=== PATIENT | female | born 1990 | race African-American/Black ===

== ENCOUNTER 2017-02-06 18:55 | Emergency (ER) | payer OTHER ==
[2017-02-06 19:05] VITALS: BP 144/89; BMI 27.4
--- NOTE | 2017-02-06 19:25 | DR.GENAD ---
HPI - PCP Primary Care Physician: nfd - Complaint/Symptoms Chief Complaint:: left breast been hurting for a couple of weeks now it has a burning sensationand is swollen Self Treatment fo Chief Complaint: tylenol and aleve for pain. none taken today - Nurses notes reviewed Nurses Notes Review: Yes - Source History Provided: Patient - Mode of Arrival Mode of Arrival: Ambulatory - Timing Onset of Chief Complaint: 01/23/17 Came on: Gradually - Duration Duration: Constant How lon Duration: Weeks - Location Location: left breast - Severity Severity: Mild - Modifying Factors Worsens:: nothing - Associated Signs and Symptoms Associated Signs and Symptoms: none PMH - PMH Past Medical History: No Past Medical History: GERD Past Surgical History: Yes Surgical History: , Cholecystectomy, CLOTHING EXAMINER Surgery Past Surgical History Comment: tubes tied - Family History History of Family Medical Conditions: Yes Family Medical History: Diabetes Mellitus, Cancer, Coronary Artery Disease, Hypertension Family Medical History Comment: seizures - Social History Does patient currently use any type of tobacco product: No Have you used tobacco products in the last 12 months: No Type of Tobacco Use: None Does any household member use tobacco: No Alcohol Use: Occasionally Do you use any recreational Drugs:: No Lives With: Family Lives Where: Home - infectious screening In the last 2 months have you had wt loss of >10#?: NO Have you had fever, night sweats or hemotysis?: No Have you traveled outside the country in the last 6 months?: No Isolation: Standard ROS - Review of Systems Constitutional: No Symptoms Reported Eyes: No Symptoms Reported ENTM: No Symptoms Reported Respiratoy: No Symptoms Reported Cardiovascular: No Symptoms Reported Gastrointestinal/Abdominal: No Symptoms Reported Genitourinary: No Symptoms Reported Neurological: No Symptoms Reported Musculoskeletal: No Symptoms Reported Integumentary: No Symptoms Reported Hematologic/Lymphatic: No Symptoms Reported Endocrine: No Symptoms Reported Psychiatric: No Symptoms Reported PE - Vital Signs Vitals: Temperature 98.6 F Pulse Rate 86 Respiratory Rate 20 Blood Pressure 144/89 O2 Sat by Pulse Oximetry 100 - General Limitations: No Limitations General Appearance: Alert, In No Apparent Distress - Head Head Exam: Normal Inspection - Eyes Eye exam: Normal Appearance, EOMI. negative: Scleral Icterus, Conjunctival Injection - ENT External Ear Exam: Normal External Inspection Nose Exam: Normal Nose Exam - Neck Neck Exam: Normal Inspection, Full ROM, Trachea Midline - Respiratory Respiratory Exam: negative: Accessory Muscle Use, Chest Wall Tenderness, Respiratory Distress - Extremities Extremities Exam: Normal Inspection, Full ROM - Neurologic Neurological Exam: Alert, Oriented X3, CN II-XII Intact - Psychiatric Psychiatric Exam: Normal Mood - Skin Skin Exam: Intact, Normal Color - Diagnosis Discharge Problem: Mastitis - Discharge Plan Condition: Stable Prescriptions: Cephalexin [Keflex Cap 500 mg] 500 mg PO BID #20 cap Ibuprofen [Motrin Tab 800 mg] 800 mg PO Q8H PRN #30 tab PRN Reason: Pain/Inflammation - Follow ups/Referrals Follow ups/Referrals: NFD,None [Primary Care Provider] - 3 days - Instructions
[2017-02-06] MEDS ORDERED: AMOXIL CAP 500 MG PO ONE ×2 (19:45→19:53)
[2017-02-06] MEDS ORDERED: MOTRIN TAB 800 MG PO ONE ×2 (19:46→19:52)
== END 2017-02-06 19:55 | disposition home or self-care (01) ==
LOC: ER 19:08
DX: N61.0 Mastitis without abscess (principal)
CPT/HCPCS: 99282

== ENCOUNTER 2017-03-30 15:32 | Emergency (ER) | payer OTHER ==
[2017-03-30 15:36] VITALS: BMI 33.2
--- NOTE | 2017-03-30 15:51 | DR.EXTPAIN ---
HPI - Time seen Time seen: 15:50 - PCP Primary Care Physician: KYLE - HPI Comment HPI Comment: PAIN ASSOCIATED WITH LEFT SIDED PARESTHESIA AND DIZZINES. NO INJURY NOTED. SHOULDER PAIN INCREASE WITH MOVEMENT OF LEFT SHOULDER. - Complaint/Symptoms Chief Complaint Doctor Comments: PAIN LEFT SHOULDER RADIATING TO NECK AND LEFT ARM. Chief Complaint:: PT. C/O LEFT SHOULDER PAIN THAT RADIATES UP LEFT SIDE OF NECK AND HEAD. PT. C/O HAVING HOT FLASHES AND FEELING DIZZY WELL. - Nurses notes reviewed Nurses Notes Review: Yes - Source History Provided: Patient - Mode of arrival Mode of Arrival: Ambulatory - Timing Onset of Chief Complaint: 03/29/17 - Context History of: None - Associated signs and symptoms Associated Signs and Symptoms: Pain PMH - PMH Past Medical History: No Past Medical History: GERD Past Surgical History: Yes Surgical History: , Cholecystectomy - Family History History of Family Medical Conditions: Yes Family Medical History: Diabetes Mellitus, Cancer, Coronary Artery Disease, Hypertension - Social History Does patient currently use any type of tobacco product: No Have you used tobacco products in the last 12 months: No Type of Tobacco Use: None Does any household member use tobacco: No Alcohol Use: Occasionally Do you use any recreational Drugs:: No Lives With: Family Lives Where: Home - infectious screening In the last 2 months have you had wt loss of >10#?: NO Have you had fever, night sweats or hemotysis?: No Have you traveled outside the country in the last 6 months?: No Isolation: Standard ROS - Review of Systems Constitutional: No Symptoms Reported. negative: Chills, Diaphoresis, Fever, Weakness, Fatigue Eyes: No Symptoms Reported. negative: Eye Pain, Discharge ENTM: No Symptoms Reported. negative: Ear Pain, Nose Discharge, Nose Congestion , Throat Pain Respiratoy: Non-Productive Cough, Short of Breath. negative: Productive Cough, Wheezing, Hemoptysis Cardiovascular: Other (LT SHOULDER PAIN, BRADYCARDIA.). negative: Edema, Palpitations, Syncope Gastrointestinal/Abdominal: negative: Abdominal Pain, Constipation, Diarrhea, Nausea, Vomiting Genitourinary: No Symptoms Reported. negative: Dysuria, Frequency, Hematuria Neurological: Headache, Paresthesia, Dizziness. negative: Weakness Musculoskeletal: Joint Pain, Joint Swelling, Muscle Pain Integumentary: No Symptoms Reported Hematologic/Lymphatic: No Symptoms Reported Endocrine: No Symptoms Reported All Other Systems: Reviewed and Negative PE - Vital Signs Vitals: Temperature 98.1 F Pulse Rate [Left Brachial] 57 Pulse Rate 78 Respiratory Rate 18 Blood Pressure [Left Arm] 141/95 Blood Pressure 149/102 O2 Sat by Pulse Oximetry 97 - General Limitations: No Limitations General Appearance: Alert - Head Head Exam: Normal Inspection - Eyes Eye exam: Normal Appearance - ENT ENT Exam: Normal External Ear Exam - Neck Neck Exam: Normal Inspection - Chest Chest Inspection: Symmetric Chest Wall Rise - Respiratory Respiratory Exam: Normal Lung Sounds Bilat Respiratory Exam: Bilateral Clear to Auscultation - Cardiovascular Cardiovascular Exam: Bradycardia - Abdominal Exam Abdominal Exam: Normal Bowel Sounds, Soft. negative: Tenderness - Extremities Extremities Exam: Tenderness (LT SHOULDER, ), Joint Swelling (LT SHOULDER). negative: Full ROM (DECREASE ROM.) - Upper Extremities Shoulder Exam: Tenderness, Swelling, Tenderness over AC Joint. negative: Full ROM - Lower Extremities Gait Exam: Observed and Normal - Back Back Exam: Normal Inspection - Neurological Neurological Exam: Alert, Oriented X3, CN II-XII Intact, Normal Gait, Reflexes Normal. negative: Motor Sensory Deficit - Psychiatric Psychiatric Exam: Anxious - Skin Skin Exam: Normal Color MDM - Differential Diagnosis Differential Diagnosis: Contusion, Fracture, Sprain, Other (OH, CVA, STRAIN) Course - Treatment Treatment: SEE ORDERS. - Consultation Consultation Comments: DISCUSS PATIENT WITH DR. OCAMPO.HE WILL FOLLOW PATIENT IN HIS OFFICE - Education/Counseling Education/Counseling: Patient, Education Educated On: Diagnosis, Needs for Follow Up ROR - Labs Reviewed Laboratory Results Reviewed?: Yes Result Diagrams: 03/30/17 16:12 03/30/17 16:12 Laboratory: WBC 3.5 X10^3/uL (3.6-10.0) L 03/30/17 16:12 RBC 4.37 X10^6/uL (3.5-5.4) 03/30/17 16:12 Hgb 11.9 g/dL (12.0-16.0) L 03/30/17 16:12 Hct 35.7 % (36.0-47.0) L 03/30/17 16:12 MCV 81.6 fL (80.0-100.0) 03/30/17 16:12 MCH 27.1 pg (27.0-34.0) 03/30/17 16:12 MCHC 33.2 g/dL (33.0-35.0) 03/30/17 16:12 RDW 12.9 % (11.6-16.5) 03/30/17 16:12 Plt Count 211 X10^3/uL (150.0-450.0) 03/30/17 16:12 MPV 8.3 fL (7.4-11.0) 03/30/17 16:12 Neut % 34.6 % (42.0-75.0) L 03/30/17 16:12 Lymph % 44.5 % (21.0-51.0) 03/30/17 16:12 [place] % 11.3 % (0.0-13.0) 03/30/17 16:12 Eos % 8.9 % (0.9-2.9) H 03/30/17 16:12 Baso % 0.7 % (0.2-1.0) 03/30/17 16:12 Neut # 1.2 x10^3/uL (2.2-4.8) L 03/30/17 16:12 Lymph # 1.6 X10^3/uL (1.3-2.9) 03/30/17 16:12 [place] # 0.4 x10^3/uL (0.3-0.8) 03/30/17 16:12 Eos # 0.3 x10^3/uL (0.0-0.2) H 03/30/17 16:12 Baso # 0.0 X10^3/uL (0.0-0.1) 03/30/17 16:12 Absolute Nucleated RBC 0.0 /100WBC 03/30/17 16:12 Sodium 141 mmol/L (136-145) 03/30/17 16:12 Corrected Sodium TNP 03/30/17 16:12 Potassium 3.4 mmol/L (3.5-5.1) L 03/30/17 16:12 Chloride 106 mmol/L (98-107) 03/30/17 16:12 Carbon Dioxide 28.3 mmol/L (21-32) 03/30/17 16:12 BUN 9 mg/dL (7-18) 03/30/17 16:12 Creatinine 0.86 mg/dL (0.55-1.02) 03/30/17 16:12 Est GFR (MDRD) Af Amer > 60 (>60) 03/30/17 16:12 Est GFR (MDRD) Non-Af > 60 (>60) 03/30/17 16:12 Glucose 86 mg/dL (65-99) 03/30/17 16:12 Calcium 9.0 mg/dL (8.5-10.1) 03/30/17 16:12 Corrected Calcium TNP 03/30/17 16:12 Total Bilirubin 0.80 mg/dL (0.2-1.0) 03/30/17 16:12 AST 20 Units/L (15-37) 03/30/17 16:12 ALT 20 Units/L (12-78) 03/30/17 16:12 Alkaline Phosphatase 70 Units/L (46-116) 03/30/17 16:12 Creatine Kinase 296 Units/L (26-192) H 03/30/17 16:12 CK-MB (CK-2) < 1.0 ng/mL (0-4.0) 03/30/17 16:12 CK/CKMB % Calc 0.3 % (<4) 03/30/17 16:12 Troponin I < 0.02 ng/mL (0-1.5) 03/30/17 16:12 Total Protein 7.7 g/dL (6.4-8.2) 03/30/17 16:12 Albumin 3.8 g/dL (3.4-5.0) 03/30/17 16:12 Globulin 3.9 g/dL (2.5-4.5) 03/30/17 16:12 Albumin/Globulin Ratio 1.0 Ratio (1.1-2.1) L 03/30/17 16:12 HCG, Qual Negative <10 mIU/mL 03/30/17 16:12 Specimen Type Clean catch urine 03/30/17 17:08 Urine Color Yellow (YELLOW) 03/30/17 17:08 Urine Appearance Slightly hazy (CLEAR) 03/30/17 17:08 Urine pH 7.0 (5.0 - 8.0) 03/30/17 17:08 Ur Specific [place] 1.010 (1.000-1.030) 03/30/17 17:08 Urine Protein Negative (NEGATIVE) 03/30/17 17:08 Urine Glucose (UA) Negative (NEGATIVE) 03/30/17 17:08 Urine Ketones Negative (NEGATIVE) 03/30/17 17:08 Urine Occult Blood Negative (NEGATIVE) 03/30/17 17:08 Urine Nitrite Negative (NEGATIVE) 03/30/17 17:08 Urine Bilirubin Negative (NEGATIVE) 03/30/17 17:08 Urine Urobilinogen 1+ (NORMAL) 03/30/17 17:08 Ur Leukocyte Esterase Negative (NEGATIVE) 03/30/17 17:08 Urine RBC Negative /HPF (NEGATIVE) 03/30/17 17:08 Urine WBC Rare /HPF (NEGATIVE) 03/30/17 17:08 Ur Squamous Epith Cells Few /HPF (NEGATIVE) 03/30/17 17:08 Urine Bacteria Negative /HPF (NEGATIVE) 03/30/17 17:08 Urine Mucus Few /HPF (NEGATIVE) 03/30/17 17:08 Ur Culture Indicated? No/not indicated 03/30/17 17:08 Urine Opiates Screen Negative (NEG=<300) 03/30/17 17:08 Urine Methadone Screen Negative (NEG=<300) 03/30/17 17:08 Ur Barbiturates Screen Negative (NEG=<200) 03/30/17 17:08 Ur Phencyclidine Scrn Negative (NEG=<25) 03/30/17 17:08 Ur Amphetamines Screen Negative (NEG=<1000) 03/30/17 17:08 U Benzodiazepines Scrn Negative (NEG=<200) 03/30/17 17:08 Urine Cocaine Screen Negative (NEG=<300) 03/30/17 17:08 U Marijuana (THC) Screen Positive (NEG=<50) A 03/30/17 17:08 - XRAY XRAY Interpreted by: Radiologist XRAY Findings: REPORT DISCUSS WITH PATIENT. - EKG Rhythm: SB (EKG NOTED AND DISCUSS WITH PATIENT.) - Diagnosis Discharge Problem: Bradycardia Chest pain Qualifiers: Chest pain type: intercostal pain Qualified Code(s): R07.82 - Intercostal pain Sprain of left shoulder Qualifiers: Encounter type: initial encounter Shoulder sprain type: unspecified sprain Qualified Code(s): S43.402A - Unspecified sprain of left shoulder joint, initial encounter - Discharge Plan Disposition: 01 HOME, SELF-CARE Condition: Stable Prescriptions: Cyclobenzaprine HCl [FLEXERIL 10 MG *] 10 mg PO TID PRN #20 tab PRN Reason: Ibuprofen [MOTRIN TAB 600 MG *] 600 mg PO TID PRN #20 tab PRN Reason: Pain/Inflammation - Follow ups/Referrals Follow ups/Referrals: SARAH OCAMPO [STAFF PHYSICIAN] - 03/31/17 NFD,None [Primary Care Provider] - 03/31/17 - Instructions Instructions: Shoulder Pain, [id number], Bradycardia Additional Instructions: RETURN TO ED IF WORSE.
[2017-03-30 16:39] LABS: BASOPHILS % (AUTO) 0.7 % (0.2-1.0); EOSINOPHILS # (AUTO) 0.3 x10^3/uL (0.0-0.2); EOSINOPHILS % (AUTO) 8.9 % (0.9-2.9); HEMATOCRIT 35.7 % (36.0-47.0); HEMOGLOBIN 11.9 g/dL (12.0-16.0); LYMPHOCYTES # (AUTO) 1.6 X10^3/uL (1.3-2.9); LYMPHOCYTES % (AUTO) 44.5 % (21.0-51.0); MEAN CORPUSCULAR HEMOGLOBIN 27.1 pg (27.0-34.0); MEAN CORPUSCULAR HGB CONC 33.2 g/dL (33.0-35.0); MEAN CORPUSCULAR VOLUME 81.6 fL (80.0-100.0); MEAN PLATELET VOLUME 8.3 fL (7.4-11.0); MONOCYTES # (AUTO) 0.4 x10^3/uL (0.3-0.8); MONOCYTES % (AUTO) 11.3 % (0.0-13.0); NEUTROPHILS # (AUTO) 1.2 x10^3/uL (2.2-4.8); NEUTROPHILS % (AUTO) 34.6 % (42.0-75.0); PLATELET COUNT 211 X10^3/uL (150.0-450.0); RED BLOOD COUNT 4.37 X10^6/uL (3.5-5.4); RED CELL DISTRIBUTION WIDTH 12.9 % (11.6-16.5); WHITE BLOOD COUNT 3.5 X10^3/uL (3.6-10.0)
--- NOTE | 2017-03-30 16:42 | RAD ---
HISTORY: Pain Study: Left shoulder series Comparison: None Findings: The appearance of the clavicle and AC joint are unremarkable. The glenohumeral articulation is norm al in its appearance. No acute cortical disruption or dislocation can be identified. The visualize d portions of the scapula are unremarkable. In addition, the visualized portions of the chest appea r unremarkable. IMPRESSION: 1. Negative exam. Reported By:
--- NOTE | 2017-03-30 16:44 | RAD ---
HISTORY: Pain Study: Portable chest Comparison: 05/01/2016 Findings: The trachea is midline. The cardiac silhouette is unremarkable. The lungs are clear without focal infiltrate or effusion. The bony thorax is unremarkable. IMPRESSION: Stable chest with no acute abnormality seen. Reported By:
--- NOTE | 2017-03-30 16:45 | CT ---
HISTORY: Headache Study: CT brain without contrast Comparison: None Technique: Multiple axial images of the brain were obtained from the skull base to the vertex without administr ation of IV contrast. Findings: No acute intraparenchymal hemorrhage or mass can be identified. No extra-axial fluid collections ar e seen. No alteration in the attenuation of the brain parenchyma can be identified to suggest acute or subacute ischemic change. The ventricular system is symmetric and nondilated. The extracranial structures are grossly unremarkable. IMPRESSION: 1. No acute intracranial process can be identified. Reported By:
[2017-03-30 17:03] LABS: BLOOD UREA NITROGEN 9 mg/dL (7-18); CARBON DIOXIDE 28.3 mmol/L (21-32); CHLORIDE 106 mmol/L (98-107); CREATININE 0.86 mg/dL (0.55-1.02); GLUCOSE 86 mg/dL (65-99); SODIUM 141 mmol/L (136-145); TROPONIN I < 0.02 ng/mL (0-1.5); eGFR BLACK RACES > 60 (>60); eGFR NON BLACK RACES > 60 (>60)
[2017-03-30 17:05] LABS: ALANINE AMINOTRANSFERASE 20 Units/L (12-78); ALBUMIN 3.8 g/dL (3.4-5.0); ALKALINE PHOSPHATASE 70 Units/L (46-116); ASPARTATE AMINO TRANSFERASE 20 Units/L (15-37); CKMB % 0.3 % (<4); CREATINE KINASE 296 Units/L (26-192); CREATINE KINASE MB < 1.0 ng/mL (0-4.0); TOTAL PROTEIN 7.7 g/dL (6.4-8.2)
[2017-03-30 17:08] LABS: SERUM PREGNANCY TEST, QUAL NEGATIVE <10 mIU/mL
[2017-03-30 17:26] LABS: BILIRUBIN,URINE NEGATIVE (NEGATIVE); BLOOD/HEMOGLOBIN,URINE NEGATIVE (NEGATIVE); GLUCOSE, URINE NEGATIVE (NEGATIVE); KETONES,URINE NEGATIVE (NEGATIVE); LEUKOCYTE ESTERASE ,URINE NEGATIVE (NEGATIVE); NITRITES,URINE NEGATIVE (NEGATIVE); PROTEIN,URINE NEGATIVE (NEGATIVE); UROBILINOGEN,URINE 1+ (NORMAL)
[2017-03-30 17:36] LABS: APPEARANCE,URINE SLIGHTLY HAZY (CLEAR); COLOR,URINE YELLOW (YELLOW)
[2017-03-30 17:38] LABS: BACTERIA,URINE NEGATIVE /HPF (NEGATIVE); MUCUS,URINE FEW /HPF (NEGATIVE); RBC,URINE NEGATIVE /HPF (NEGATIVE); SQUAMOUS EPITHELIAL CELL,UR FEW /HPF (NEGATIVE)
[2017-03-30] MEDS ORDERED: TORADOL TAB PO ONE ×2 (18:25→18:31)
[2017-03-30] MEDS ORDERED: FLEXERIL TAB 10 MG PO ONE (18:26)
[2017-03-30 18:32] VITALS: BP 141/95
[2017-03-30] MEDS ORDERED: FLEXERIL TAB 10 MG ONE (18:32)
== END 2017-03-30 18:36 | disposition home or self-care (01) ==
LOC: ER 15:38
DX: S43.402A Unspecified sprain of left shoulder joint, initial encounter (principal); R00.1 Bradycardia, unspecified; Y33.XXXA Other specified events, undetermined intent, initial encounter; R51 Headache
CPT/HCPCS: 36415; 70450; 71010; 73030; 80053; 80307; 81001; 82550; 82553; 84484; 84703; 85025; 93005; 93010; 99283; G0434

== ENCOUNTER 2017-07-09 08:26 | Emergency (ER) | payer OTHER ==
[2017-07-09 08:32] VITALS: BMI 33.2
--- NOTE | 2017-07-09 08:41 | DR.GENAD ---
HPI - PCP Primary Care Physician: none - HPI Comment HPI Comment: SUBSTERNAL SHARP PAIN RADIATING TO LEFT ARM ASSOCIATED WITH WEAKNESS AND SOB. NO COUGH, FEVER OR CONGESTION. PAIN INTERMITTENT. NO MED TAKEN FOR PAIN. - Complaint/Symptoms Chief Complaint Doctors Comments: CHEST PAIN. STARTED THIS AM. Chief Complaint:: "pt having chest pain for about an hour now it started at work this morning its hurting in the center of her chest and going down her left arm" - Nurses notes reviewed Nurses Notes Review: Yes - Source History Provided: Patient - Mode of Arrival Mode of Arrival: Ambulatory - Timing Onset of Chief Complaint: 07/09/17 Came on: Suddenly - Duration Duration: Constant Duration: Hours. denies: Days - Severity Severity: Moderate PMH - PMH Past Medical History: Yes Past Medical History: Anxiety, GERD Past Surgical History: Yes Surgical History: , Cholecystectomy - Family History History of Family Medical Conditions: Yes Family Medical History: Diabetes Mellitus, Cancer, Coronary Artery Disease, Hypertension - Social History Does patient currently use any type of tobacco product: No Have you used tobacco products in the last 12 months: No Type of Tobacco Use: None Does any household member use tobacco: No Alcohol Use: None Do you use any recreational Drugs:: No Lives With: Family Lives Where: Home - infectious screening In the last 2 months have you had wt loss of >10#?: NO Have you had fever, night sweats or hemotysis?: No Have you traveled outside the country in the last 6 months?: No Isolation: Standard ROS - Review of Systems Constitutional: Weakness, Fatigue Eyes: No Symptoms Reported. negative: Eye Pain, Discharge ENTM: No Symptoms Reported. negative: Ear Pain, Nose Discharge, Nose Congestion , Throat Pain Respiratoy: No Symptoms Reported, Short of Breath. negative: Productive Cough, Non-Productive Cough, Wheezing, Hemoptysis Cardiovascular: Chest Pain, Palpitations. negative: Edema, Syncope Gastrointestinal/Abdominal: No Symptoms Reported, Diarrhea Genitourinary: No Symptoms Reported. negative: Dysuria, Frequency, Hematuria Neurological: No Symptoms Reported, Weakness. negative: Headache, Dizziness Musculoskeletal: No Symptoms Reported Integumentary: No Symptoms Reported Hematologic/Lymphatic: No Symptoms Reported Endocrine: No Symptoms Reported All Other Systems: Reviewed and Negative PE - Vital Signs Vitals: Temperature 98 F Pulse Rate [Right Brachial] 74 Pulse Rate 95 Respiratory Rate 20 Blood Pressure [Left Arm] 118/73 Blood Pressure 133/91 O2 Sat by Pulse Oximetry 99 - General Limitations: No Limitations General Appearance: Alert - Head Head Exam: Normal Inspection - Eyes Eye exam: Normal Appearance, PERRL, EOMI. negative: Conjunctival Injection - ENT ENT Exam: Normal External Ear Exam External Ear Exam: Normal External Inspection TM/Canal Exam: Bilateral Normal Nose Exam: Normal Nose Exam Mouth Exam: Normal Inspection Throat Exam: Normal Inspection - Neck Neck Exam: Normal Inspection, Trachea Midline - Chest Chest Inspection: Symmetric Chest Wall Rise - Respiratory Respiratory Exam: Normal Lung Sounds Bilat Respiratory Exam: Bilateral Clear to Auscultation - Cardiovascular Cardiovascular Exam: Regular Rate, Normal Rhythm - Abdominal Exam Abdominal Exam: Normal Inspection - Extremities Extremities Exam: Normal Inspection - Back Back Exam: Normal Inspection - Neurologic Neurological Exam: Alert, Oriented X3 - Psychiatric Psychiatric Exam: Normal Affect - Skin Skin Exam: Normal Color MDM - Differential Diagnosis Differential Diagnosis: CHEST PAIN Course - Treatment Treatment: SEE ORDERS. - Education/Counseling Education/Counseling: Patient Educated On: Treatment, Diagnosis ROR - Labs Reviewed Laboratory Results Reviewed?: Yes Result Diagrams: 07/09/17 09:08 07/09/17 09:08 Laboratory: WBC 3.7 X10^3/uL (3.6-10.0) 07/09/17 09:08 RBC 4.66 X10^6/uL (3.5-5.4) 07/09/17 09:08 Hgb 12.8 g/dL (12.0-16.0) 07/09/17 09:08 Hct 38.1 % (36.0-47.0) 07/09/17 09:08 MCV 81.9 fL (80.0-100.0) 07/09/17 09:08 MCH 27.5 pg (27.0-34.0) 07/09/17 09:08 MCHC 33.5 g/dL (33.0-35.0) 07/09/17 09:08 RDW 13.4 % (11.6-16.5) 07/09/17 09:08 Plt Count 208 X10^3/uL (150.0-450.0) 07/09/17 09:08 MPV 8.1 fL (7.4-11.0) 07/09/17 09:08 Neut % 36.5 % (42.0-75.0) L 07/09/17 09:08 Lymph % 43.0 % (21.0-51.0) 07/09/17 09:08 [place] % 11.4 % (0.0-13.0) 07/09/17 09:08 Eos % 7.9 % (0.9-2.9) H 07/09/17 09:08 Baso % 1.2 % (0.2-1.0) H 07/09/17 09:08 Neut # 1.3 x10^3/uL (2.2-4.8) L 07/09/17 09:08 Lymph # 1.6 X10^3/uL (1.3-2.9) 07/09/17 09:08 [place] # 0.4 x10^3/uL (0.3-0.8) 07/09/17 09:08 Eos # 0.3 x10^3/uL (0.0-0.2) H 07/09/17 09:08 Baso # 0.0 X10^3/uL (0.0-0.1) 07/09/17 09:08 Absolute Nucleated RBC 0.0 /100WBC 07/09/17 09:08 D-Dimer < 100 ng/mL (0-400) 07/09/17 09:08 Sodium 138 mmol/L (136-145) 07/09/17 09:08 Corrected Sodium TNP 07/09/17 09:08 Potassium 3.7 mmol/L (3.5-5.1) 07/09/17 09:08 Chloride 104 mmol/L (98-107) 07/09/17 09:08 Carbon Dioxide 25.2 mmol/L (21-32) 07/09/17 09:08 BUN 12 mg/dL (7-18) 07/09/17 09:08 Creatinine 0.96 mg/dL (0.55-1.02) 07/09/17 09:08 Est GFR (MDRD) Af Amer > 60 (>60) 07/09/17 09:08 Est GFR (MDRD) Non-Af > 60 (>60) 07/09/17 09:08 Glucose 88 mg/dL (65-99) 07/09/17 09:08 Calcium 9.0 mg/dL (8.5-10.1) 07/09/17 09:08 Corrected Calcium TNP 07/09/17 09:08 Total Bilirubin 0.70 mg/dL (0.2-1.0) 07/09/17 09:08 AST 18 Units/L (15-37) 07/09/17 09:08 ALT 21 Units/L (12-78) 07/09/17 09:08 Alkaline Phosphatase 69 Units/L (46-116) 07/09/17 09:08 Creatine Kinase 228 Units/L (26-192) H 07/09/17 09:08 CK-MB (CK-2) < 1.0 ng/mL (0-4.0) 07/09/17 09:08 CK/CKMB % Calc 0.4 % (<4) 07/09/17 09:08 Troponin I < 0.02 ng/mL (0-1.5) 07/09/17 09:08 Total Protein 8.0 g/dL (6.4-8.2) 07/09/17 09:08 Albumin 3.8 g/dL (3.4-5.0) 07/09/17 09:08 Globulin 4.2 g/dL (2.5-4.5) 07/09/17 09:08 Albumin/Globulin Ratio 0.9 Ratio (1.1-2.1) L 07/09/17 09:08 Specimen Type Clean catch urine 07/09/17 09:07 Urine Color Yellow (YELLOW) 07/09/17 09:07 Urine Appearance Clear (CLEAR) 07/09/17 09:07 Urine pH 6.0 (5.0 - 8.0) 07/09/17 09:07 Ur Specific [place] 1.025 (1.000-1.030) 07/09/17 09:07 Urine Protein Negative (NEGATIVE) 07/09/17 09:07 Urine Glucose (UA) Negative (NEGATIVE) 07/09/17 09:07 Urine Ketones Negative (NEGATIVE) 07/09/17 09:07 Urine Occult Blood Negative (NEGATIVE) 07/09/17 09:07 Urine Nitrite Negative (NEGATIVE) 07/09/17 09:07 Urine Bilirubin Negative (NEGATIVE) 07/09/17 09:07 Urine Urobilinogen 1+ (NORMAL) 07/09/17 09:07 Ur Leukocyte Esterase Negative (NEGATIVE) 07/09/17 09:07 Urine RBC 0 /HPF (NEGATIVE) 07/09/17 09:07 Urine WBC 0-1 /HPF (NEGATIVE) 07/09/17 09:07 Ur Squamous Epith Cells Few /HPF (NEGATIVE) 07/09/17 09:07 Urine Bacteria Trace /HPF (NEGATIVE) 07/09/17 09:07 Ur Culture Indicated? No/not indicated 07/09/17 09:07 Urine Opiates Screen Negative (NEG=<300) 07/09/17 09:07 Urine Methadone Screen Negative (NEG=<300) 07/09/17 09:07 Ur Barbiturates Screen Negative (NEG=<200) 07/09/17 09:07 Ur Phencyclidine Scrn Negative (NEG=<25) 07/09/17 09:07 Ur Amphetamines Screen Negative (NEG=<1000) 07/09/17 09:07 U Benzodiazepines Scrn Negative (NEG=<200) 07/09/17 09:07 Urine Cocaine Screen Negative (NEG=<300) 07/09/17 09:07 U Marijuana (THC) Screen Positive (NEG=<50) A 07/09/17 09:07 H. pylori IgG Antibody Negative (NEGATIVE) 07/09/17 09:08 - XRAY XRAY Interpreted by: Radiologist XRAY Findings: REPORT DISCUSS WITH PATIENT. - EKG Rhythm: NSR (EKG NOTED) - Diagnosis Discharge Problem: Chest pain Qualifiers: Chest pain type: intercostal pain Qualified Code(s): R07.82 - Intercostal pain - Discharge Plan Disposition: 01 HOME, SELF-CARE Condition: Stable Prescriptions: Ranitidine HCl [ZANTAC TAB 150 MG *] 150 mg PO BID #60 tab - Follow ups/Referrals Follow ups/Referrals: NFD,None [Primary Care Provider] - 1 day SARAH OCAMPO [STAFF PHYSICIAN] - 1 day - Instructions Instructions: Chest Pain Observation Additional Instructions: RETURN TO ED IF WORSE.
[2017-07-09 09:06] VITALS: BP 118/73
[2017-07-09 09:22] LABS: BASOPHILS % (AUTO) 1.2 % (0.2-1.0); EOSINOPHILS # (AUTO) 0.3 x10^3/uL (0.0-0.2); EOSINOPHILS % (AUTO) 7.9 % (0.9-2.9); HEMATOCRIT 38.1 % (36.0-47.0); HEMOGLOBIN 12.8 g/dL (12.0-16.0); LYMPHOCYTES # (AUTO) 1.6 X10^3/uL (1.3-2.9); MEAN CORPUSCULAR HEMOGLOBIN 27.5 pg (27.0-34.0); MEAN CORPUSCULAR HGB CONC 33.5 g/dL (33.0-35.0); MEAN CORPUSCULAR VOLUME 81.9 fL (80.0-100.0); MEAN PLATELET VOLUME 8.1 fL (7.4-11.0); MONOCYTES # (AUTO) 0.4 x10^3/uL (0.3-0.8); MONOCYTES % (AUTO) 11.4 % (0.0-13.0); NEUTROPHILS # (AUTO) 1.3 x10^3/uL (2.2-4.8); NEUTROPHILS % (AUTO) 36.5 % (42.0-75.0); PLATELET COUNT 208 X10^3/uL (150.0-450.0); RED BLOOD COUNT 4.66 X10^6/uL (3.5-5.4); RED CELL DISTRIBUTION WIDTH 13.4 % (11.6-16.5); WHITE BLOOD COUNT 3.7 X10^3/uL (3.6-10.0)
[2017-07-09 09:25] LABS: BILIRUBIN,URINE NEGATIVE (NEGATIVE); BLOOD/HEMOGLOBIN,URINE NEGATIVE (NEGATIVE); GLUCOSE, URINE NEGATIVE (NEGATIVE); KETONES,URINE NEGATIVE (NEGATIVE); LEUKOCYTE ESTERASE ,URINE NEGATIVE (NEGATIVE); NITRITES,URINE NEGATIVE (NEGATIVE); PROTEIN,URINE NEGATIVE (NEGATIVE); UROBILINOGEN,URINE 1+ (NORMAL)
--- NOTE | 2017-07-09 09:27 | RAD ---
HISTORY: Chest pain Study: Chest AP portable Comparison: March 30, 2017 Findings: The trachea is midline. The cardiac silhouette is unremarkable. The lungs are clear without focal i nfiltrate or effusion. The bony thorax is unremarkable. IMPRESSION: 1. No acute cardiopulmonary disease. Reported By:
[2017-07-09 09:36] LABS: APPEARANCE,URINE CLEAR (CLEAR); BACTERIA,URINE TRACE /HPF (NEGATIVE); COLOR,URINE YELLOW (YELLOW); RBC,URINE 0 /HPF (NEGATIVE); SQUAMOUS EPITHELIAL CELL,UR FEW /HPF (NEGATIVE)
[2017-07-09 09:36] LABS: BLOOD UREA NITROGEN 12 mg/dL (7-18); CARBON DIOXIDE 25.2 mmol/L (21-32); CHLORIDE 104 mmol/L (98-107); CREATININE 0.96 mg/dL (0.55-1.02); SODIUM 138 mmol/L (136-145); TROPONIN I < 0.02 ng/mL (0-1.5); eGFR BLACK RACES > 60 (>60); eGFR NON BLACK RACES > 60 (>60)
[2017-07-09 09:40] LABS: ALANINE AMINOTRANSFERASE 21 Units/L (12-78); ALBUMIN 3.8 g/dL (3.4-5.0); ALKALINE PHOSPHATASE 69 Units/L (46-116); ASPARTATE AMINO TRANSFERASE 18 Units/L (15-37); CKMB % 0.4 % (<4); CREATINE KINASE 228 Units/L (26-192); CREATINE KINASE MB < 1.0 ng/mL (0-4.0)
== END 2017-07-09 11:02 | disposition home or self-care (01) ==
LOC: ER 08:49
DX: R07.82 Intercostal pain (principal)
CPT/HCPCS: 36415; 71010; 80053; 80307; 81001; 82550; 82553; 84484; 85025; 85378; 86677; 93005; 93010; 99283; G0434